=== PATIENT | male | born 1985 | race Caucasian/White ===

== ENCOUNTER 2018-01-24 14:43 | Emergency (ER) | payer OTHER, BC ==
[2018-01-24] MEDS: Diphtheria/Tetanus Toxoids,Adult (Td) 0.5 ML SDV IM ONE (15:15)
[2018-01-24] MEDS: Morphine 10 MG/ML SDV IV ONE (15:15)
--- NOTE | 2018-01-24 16:22 | EDM.PDOC ---
ED HPI GENERAL MEDICAL PROBLEM - General Chief Complaint: General Stated Complaint: CUT FINGER Time Seen by Provider: 01/24/18 15:00 Source of Information: Reports: Patient History Limitations: Reports: No Limitations - History of Present Illness INITIAL COMMENTS - FREE TEXT/NARRATIVE: This is a 32yo M working at [employer] with [employer] who got his right index finger caught in a rubber roller grinder and avulsed his distal index finger. He wrapped his finger immediately and brought in the avulsed flesh. Onset: Sudden Location: Reports: Upper Extremity, Right Severity: Severe Improves with: Reports: None Worsens with: Reports: None Treatments PSYCHOLOGICAL STRESS EVALUATOR: Reports: Other (see below) Other Treatments PSYCHOLOGICAL STRESS EVALUATOR: pressure - Related Data Allergies Allergy/AdvReac Type Severity Reaction Status Date / Time No Known Allergies Allergy Verified 01/24/18 15:15 ED ROS GENERAL - Review of Systems Review Of Systems: ROS reveals no pertinent complaints other than HPI. ED EXAM, GENERAL - Physical Exam Exam: See Below Exam Limited By: No Limitations General Appearance: Alert, WD/WN, No Apparent Distress Head: Atraumatic, Normocephalic Neck: Normal Inspection Respiratory/Chest: No Respiratory Distress, Lungs Clear Cardiovascular: Normal Peripheral Pulses, Regular Rate, Rhythm Extremities: Other (right index digit missing flesh from the DIP joint crease to the nail bed with the bone and tendon visible of the index finger 1 cm) Course - Vital Signs Last Recorded V/S: Last Vital Signs Temp 36.1 C 01/24/18 15:00 Pulse 87 01/24/18 15:00 Resp BP 131/96 H 01/24/18 15:00 Pulse Ox 94 L 01/24/18 15:00 - Orders/Labs/Meds Meds: Medications Discontinued Medications Generic Name Dose Route Start Last Admin Trade Name Annabel PRN Reason Stop Dose Admin Morphine Sulfate Confirm 01/24/18 15:28 Morphine Administered 01/24/18 15:29 Dose 4 mg .ROUTE .STK-MED ONE Departure - Departure Time of Disposition: 13:30 Disposition: DC/Tfer to Other 70 Condition: Undetermined Clinical Impression: Avulsion of skin of finger Qualifiers: Encounter type: initial encounter Qualified Code(s): S61.209A - Unspecified open wound of unspecified finger without damage to nail, initial encounter - Discharge Information Instructions: Traumatic Finger Amputation Referrals: PCP,None [Primary Care Provider] - Forms: ED Department Discharge Additional Instructions: follow up from here to [facility] in [place] [facility] - Problem List & Annotations (1) Avulsion of skin of finger SNOMED Code(s): 556520813, 423600170 Code(s): S61.209A - UNSP OPEN WOUND OF UNSP FINGER W/O DAMAGE TO NAIL, INIT Status: Acute Priority: High Qualifiers: Encounter type: initial encounter Qualified Code(s): S61.209A - Unspecified open wound of unspecified finger without damage to nail, initial encounter - Problem List Review Problem List Initiated/Reviewed/Updated: Yes - Assessment/Plan Plan: Consulted Dr. Nguyễn Cook and recommends patient go to ER for Trauma surgeon evaluation and management. Patient discharge and will be driven by a co-worker to the ER in [place]. Peripheral IV site maintained and counseled patient on care and travel. Counseled on current shock and medication side effects. Patient is stable and states he feels fine - counseled on no driving and to allow his co-worker to drive. Patient agrees with plan of care.
[2018-01-24] MEDS: Morphine 2 MG/ML Syringe ONE (16:58)
== END 2018-01-24 15:33 | disposition other institution (70) ==
LOC: LB.ED 14:43
DX: S61.200A Unspecified open wound of right index finger without damage to nail, initial encounter (principal); W23.0XXA Caught, crushed, jammed, or pinched between moving objects, initial encounter; Z23 Encounter for immunization
CPT/HCPCS: 90471; 90714; 96374; 99283-25; J2270

== ENCOUNTER → 2019-04-30 | Outpatient (CLI) | payer BC | LOC: LB.CLINIC 13:46 | PROVIDERS: ATTEND Family Medicine | DX: R52 Pain, unspecified (principal) | CPT/HCPCS: 87804; 87804-59 ==

== ENCOUNTER 2019-07-19 08:50 | Observation (INO) | payer OTHER, BC ==
--- NOTE | 2019-07-19 09:26 | EDM.PDOC ---
ED HPI GENERAL MEDICAL PROBLEM - General Stated Complaint: WORK ACCIDENT Time Seen by Provider: 07/19/19 09:00 Source of Information: Reports: Patient History Limitations: Reports: No Limitations - History of Present Illness INITIAL COMMENTS - FREE TEXT/NARRATIVE: This is a 33yo M working at [employer]. He was exposed to a large amount of liquid morphine with some ingestion. He denies shortness of breath at this time but has had changes in his BP. Onset: Sudden Location: Reports: Generalized Improves with: Reports: None Worsens with: Reports: None Associated Symptoms: Reports: No Other Symptoms - Related Data Allergies Allergy/AdvReac Type Severity Reaction Status Date / Time No Known Allergies Allergy Verified 01/24/18 15:15 Past Medical History HEENT History: Reports: Impaired Vision Musculoskeletal History: Reports: Amputation, Other (See Below) Other Musculoskeletal History: Right index finger DIP ED ROS GENERAL - Review of Systems Review Of Systems: Comprehensive ROS is negative, except as noted in HPI. ED EXAM, GENERAL - Physical Exam Exam: See Below Exam Limited By: No Limitations General Appearance: Alert, WD/WN, No Apparent Distress Eye Exam: Bilateral Eye: PERRL (dilated 7mm pupils) Ears: Normal External Exam Nose: Normal Inspection Throat/Mouth: Normal Inspection Head: Atraumatic, Normocephalic Respiratory/Chest: No Respiratory Distress, Lungs Clear, Normal Breath Sounds Cardiovascular: Normal Peripheral Pulses, Regular Rate, Rhythm Peripheral Pulses: 2+: Dorsalis Pedis (L), Dorsalis Pedis (R) GI/Abdominal: Normal Bowel Sounds Back Exam: Normal Inspection Extremities: Normal Inspection Neurological: Alert, Oriented, CN II-XII Intact Departure - Departure Time of Disposition: 09:20 Disposition: Refer to Observation Condition: Good Clinical Impression: Exposure to chemical compounds - Discharge Information Referrals: PCP,None [Primary Care Provider] - - Problem List & Annotations (1) Exposure to chemical compounds SNOMED Code(s): 251756564054375 Code(s): Z77.098 - CONTACT W AND EXPSR TO OTH HAZARD, CHIEFLY NONMED, CHEMICALS Status: Acute Priority: High Current Visit: Yes - Problem List Review Problem List Initiated/Reviewed/Updated: Yes - Assessment/Plan Plan: Patient to be placed in observation for monitoring of vitals, respirations and monitoring of response to exposure to a large amount of liquid morphine with some ingestion. Narcan prepared as needed. Telemetry and vitals to be monitored closely.
--- NOTE | 2019-07-19 15:31 | PCM.DCSUM1 ---
Discharge Summary - Discharge Data Discharge Date: 07/19/19 Discharge Disposition: Home, Self-Care 01 Condition: Good - Referral to Home Health Primary Care Physician: PCP None - Discharge Diagnosis/Problem(s) (1) Exposure to chemical compounds SNOMED Code(s): 993106633361944 ICD Code: Z77.098 - CONTACT W AND EXPSR TO OTH HAZARD, CHIEFLY NONMED, CHEMICALS Status: Resolved Priority: High - Patient Instructions Diet: Usual Diet as Tolerated Driving: May Drive Today - Discharge Plan Home Medications: Home Meds NK [No Known Home Meds] 07/19/19 [History] Referrals: PCP,None [Primary Care Provider] - - Discharge Summary/Plan Comment DC Time >30 min.: No Discharge Summary/Plan Comment: Counseled on monitoring for symptoms of opiate overdose and side effects. Discussed rtc or ER as needed for any concerns. F/u as directed in the clinic with PCP. - Patient Data Vitals - Most Recent: Last Vital Signs Temp 36.3 C 07/19/19 12:48 Pulse 74 07/19/19 12:48 Resp 18 07/19/19 14:40 BP 132/74 07/19/19 14:40 Pulse Ox 98 07/19/19 14:40 Weight - Most Recent: 91.138 kg
== END 2019-07-19 14:45 | disposition home or self-care (01) ==
LOC: LB.ED 08:50 → LB.MS 09:29
PROVIDERS: ADMIT Family Medicine; ATTEND Family Medicine
DX: Z77.098 Contact with and (suspected) exposure to other hazardous, chiefly nonmedicinal, chemicals (principal); Z57.5 Occupational exposure to toxic agents in other industries
CPT/HCPCS: 99284; G0378

== ENCOUNTER 2021-11-27 10:26 | Emergency (ER) | payer BC ==
[2021-11-27] MEDS: Sodium Chloride 0.9% 500 ML IV ONE ×2 (10:55→11:55)
[2021-11-27] MEDS: Ondansetron 4 MG/2 ML SDV IVPUSH ONE (11:05)
[2021-11-27] MEDS: Ondansetron 4 MG/2 ML SDV ONE (11:06)
[2021-11-27] MEDS ORDERED: Ondansetron 4 MG Tab.DIS ONE (12:00)
== END 2021-11-27 12:30 | disposition home or self-care (01) ==
LOC: LB.ED 10:26
DX: U07.1 COVID-19 (principal)
CPT/HCPCS: 36415; 80053; 81003; 85025; 87635; 87804; 96361; 96374; 99284; J2405; J7040; Q0162; U0002

== ENCOUNTER 2023-09-10 13:39 | Emergency (ER) | payer OTHER ==
[2023-09-10] MEDS: Bacitracin Oint 1 GM U/D Packet TOP ONE (14:00)
== END 2023-09-10 14:20 | disposition home or self-care (01) ==
LOC: LB.ED 13:39
DX: S61.314A Laceration without foreign body of right ring finger with damage to nail, initial encounter (principal); W26.8XXA Contact with other sharp object(s), not elsewhere classified, initial encounter; Y93.89 Activity, other specified; Y99.0 Civilian activity done for income or pay
CPT/HCPCS: 12001; 99282; 99283